=== PATIENT | female | born 1945 | race Caucasian/White ===

== ENCOUNTER 2018-02-12 11:09 | Emergency (ER) | payer MEDICAID ==
[~2018-02-12] VITALS: Ht 157.5 cm; Wt 55.0 kg
[~2018-02-12 11:09] MED LIST: ASPI81TA39 PO; CALC667T3 PO; INSLAN SQ; METO25XL PO; SIMV20TA6 PO
[2018-02-12 11:14] VITALS: BP 130/59
[2018-02-12] MEDS ORDERED: LISI-618 PO (11:19)
[2018-02-12] MEDS ORDERED: GABA-531 PO (11:19)
[2018-02-12] MEDS ORDERED: BACITRACIN 0.9 GM PACKET OINTMENT TP ONE (12:15)
== END 2018-02-12 12:36 | disposition home or self-care (01) ==
LOC: EMS 11:10
DX: S90.935A Unspecified superficial injury of left lesser toe(s), initial encounter (principal); E78.00 Pure hypercholesterolemia, unspecified; I11.0 Hypertensive heart disease with heart failure; I50.9 Heart failure, unspecified; Z79.4 Long term (current) use of insulin; Z79.82 Long term (current) use of aspirin; Z89.611 Acquired absence of right leg above knee; Z90.49 Acquired absence of other specified parts of digestive tract; Z95.0 Presence of cardiac pacemaker; X58.XXXA Exposure to other specified factors, initial encounter; Y93.89 Activity, other specified; Y92.89 Other specified places as the place of occurrence of the external cause; Y99.8 Other external cause status
CPT/HCPCS: 99283

== ENCOUNTER 2018-08-25 18:53 | Inpatient (IN) | payer MEDICAID ==
[~2018-08-25] VITALS: Ht 147.3 cm; Wt 42.8 kg
[~2018-08-25 18:53] MED LIST changes: +GABA-531 PO; +LISI-618 PO
[2018-08-25 19:30] LABS: EOSINOPHILS % (AUTO) 0.3 % (1.0-6.0); HEMATOCRIT 32.1 % (36-46); HEMOGLOBIN 10.8 g/dL (12.0-16.0); LYMPHOCYTES # (AUTO) 0.8 K/uL (1.0-4.8); LYMPHOCYTES % (AUTO) 10.2 % (22.0-44.0); MEAN CORPUSCULAR HEMOGLOBIN 31.7 pg (26.0-34.0); MEAN CORPUSCULAR HGB CONC 33.7 G/dL (31.0-37.0); MEAN CORPUSCULAR VOLUME 94 fL (80-100); MONOCYTES # (AUTO) 0.6 K/uL (0.1-1.0); MONOCYTES % (AUTO) 8.6 % (2.0-9.0); NEUTROPHILS # (AUTO) 6.1 K/uL (1.8-7.7); NEUTROPHILS % (AUTO) 79.9 % (40.0-70.0); RED BLOOD CELL COUNT(AUTO) 3.41 MIL/uL (4.00-5.20); RED CELL DISTRIBUTION WIDTH 15.8 % (11.5-14.5)
[2018-08-25] MEDS ORDERED: ACETAMINOPHEN 1000 MG/ISO-OSM 100 ML IV ONE (19:30)
[2018-08-25] MEDS ORDERED: SODIUM CHLORIDE 0.9% 250 ML IV ONE (19:45)
[2018-08-25 19:47] LABS: ANION GAP 6 mmol/L (8-16); CALCIUM, TOTAL 8.9 mg/dL (8.8-10.5); CARBON DIOXIDE 28 mmol/L (22-29); CHLORIDE 100 mmol/L (98-107); CREATININE 2.45 mg/dL (0.60-1.30); GLOMERULAR FILTR. RATE CALC 19 mL/min (>60); GLUCOSE,RANDOM 155 mg/dL (70-110); POTASSIUM 3.9 mmol/L (3.5-5.1); SODIUM SERUM 134 mmol/L (136-145); UREA NITROGEN, BLOOD 25 mg/dL (7-18)
[2018-08-25 19:53] LABS: ALANINE AMINOTRANSFERASE 14 U/L (12-78); ALBUMIN 2.9 g/dL (3.4-5.0); ALKALINE PHOSPHATASE 258 U/L (46-116); ASPARTATE AMINOTRANSFERASE 33 U/L (15-37); BILIRUBIN,TOTAL 0.9 mg/dL (0.1-1.0); LIPASE 82 U/L (73-393); TOTAL PROTEIN, SERUM 7.7 g/dL (6.4-8.2)
[2018-08-25 19:54] LABS: TROPONIN I 0.03 ng/mL (0.00-0.05)
[2018-08-25 19:55] LABS: B-TYPE NATRIURETIC PEPTIDE > 5000 pg/mL (0-100); LACTIC ACID 1.1 mmol/L (0.4-2.0)
[2018-08-25] MEDS ORDERED: OXYGEN THERAPY IH SCH (20:00)
[2018-08-25] MEDS ORDERED: VANCOMYCIN HCL 1 GM/D5% WATER 200 ML IV ONE (20:30)
[2018-08-25 20:41] LABS: PLATELET COUNT (AUTO) 102 K/uL (150-450)
[2018-08-25] MEDS ORDERED: ACETAMINOPHEN 325 MG TABLET PO PRN (21:00)
[2018-08-25] MEDS ORDERED: DEXTROSE 50%-WATER 25 GM/50 ML SYRINGE IVP PRN (21:00)
[2018-08-25] MEDS ORDERED: ONDANSETRON HCL 4 MG/2 ML VIAL IVP PRN (21:00)
[2018-08-25] MEDS ORDERED: 0.9% SODIUM CHLORIDE 10 ML SYRINGE IVP PRN (21:00)
[2018-08-25] MEDS ORDERED: BISACODYL 10 MG RECTAL RECTAL SUPPOSITORY PR PRN (21:15)
[2018-08-25 22:04] VITALS: BP 137/47
[2018-08-25] MEDS: ATORVASTATIN CALCIUM 20 MG TABLET PO SCH (22:51)
[2018-08-25] MEDS: ACETAMINOPHEN 325 MG TABLET PO PRN (22:51)
[2018-08-25 23:32] VITALS: BP 141/53
[2018-08-26 04:08] VITALS: BP 112/48
[2018-08-26 06:41] LABS: BASOPHILS % (AUTO) 0.4 % (0.0-2.0); EOSINOPHILS % (AUTO) 0.2 % (1.0-6.0); HEMATOCRIT 34.1 % (36-46); HEMOGLOBIN 11.4 g/dL (12.0-16.0); LYMPHOCYTES # (AUTO) 1.3 K/uL (1.0-4.8); LYMPHOCYTES % (AUTO) 11.9 % (22.0-44.0); MEAN CORPUSCULAR HEMOGLOBIN 31.9 pg (26.0-34.0); MEAN CORPUSCULAR HGB CONC 33.4 G/dL (31.0-37.0); MEAN CORPUSCULAR VOLUME 95 fL (80-100); MONOCYTES % (AUTO) 9.2 % (2.0-9.0); NEUTROPHILS # (AUTO) 8.3 K/uL (1.8-7.7); NEUTROPHILS % (AUTO) 78.3 % (40.0-70.0); PLATELET COUNT (AUTO) 89 K/uL (150-450); RED BLOOD CELL COUNT(AUTO) 3.57 MIL/uL (4.00-5.20); RED CELL DISTRIBUTION WIDTH 15.8 % (11.5-14.5)
[2018-08-26 06:45] LABS: CALCIUM, TOTAL 8.7 mg/dL (8.8-10.5); CREATININE 2.8 mg/dL (0.60-1.30); POTASSIUM 4.3 mmol/L (3.5-5.1)
[2018-08-26 07:08] VITALS: BP 126/55
[2018-08-26] MEDS: DOCUSATE SODIUM 100 MG CAPSULE PO SCH ×2 (07:25→21:00)
[2018-08-26] MEDS: PANTOPRAZOLE SODIUM 40 MG DR TABLET PO SCH (09:30)
[2018-08-26] MEDS: ASPIRIN 81 MG CHEWABLE TABLET PO SCH (09:30)
[2018-08-26] MEDS: HEPARIN SODIUM,PORCINE 5,000 UNITS/ML VIAL SQ SCH ×2 (09:30→21:00)
[2018-08-26 11:16] VITALS: BP 124/50
[2018-08-26 15:42] VITALS: BP 134/56
[2018-08-26] MEDS ORDERED: VANCOMYCIN HCL 1 GM/D5% WATER 200 ML IV PRN (15:45)
[2018-08-26 18:54] LABS: GLUCOMETER DEV NAME(LOC) 5N 1P; GLUCOSE,POINT OF CARE 159 MG/DL (70-110)
[2018-08-26] MEDS: ATORVASTATIN CALCIUM 20 MG TABLET PO SCH (20:32)
[2018-08-26] MEDS: ACETAMINOPHEN 325 MG TABLET PO PRN (20:32)
[2018-08-26 20:36] VITALS: BP 104/59
[2018-08-26 23:54] VITALS: BP 106/47
[2018-08-27 05:07] VITALS: BP 118/50
[2018-08-27] MEDS: HEPARIN SODIUM,PORCINE 5,000 UNITS/ML VIAL SQ SCH ×2 (07:26→20:00)
[2018-08-27 08:25] VITALS: BP 123/51
[2018-08-27] MEDS: DOCUSATE SODIUM 100 MG CAPSULE PO SCH ×2 (08:45→21:00)
[2018-08-27] MEDS: PANTOPRAZOLE SODIUM 40 MG DR TABLET PO SCH (08:46)
[2018-08-27] MEDS: ASPIRIN 81 MG CHEWABLE TABLET PO SCH (08:46)
[2018-08-27] MEDS ORDERED: EPOETIN ALFA 10,000 UNITS/ML 2 ML VIAL SQ SCH (09:00)
[2018-08-27 11:46] VITALS: BP 122/49
[2018-08-27] MEDS: INSULIN LISPRO 100 UNITS/ML SQ PRN ×2 (12:21→22:02)
[2018-08-27] MEDS: ACETAMINOPHEN 325 MG TABLET PO PRN ×2 (13:13→18:02)
[2018-08-27] MEDS: PHENYLEPHRINE/SHK LV/MIN OIL/PET 57 GM OINTMENT TP PRN ×2 (15:42→20:45)
[2018-08-27 16:54] VITALS: BP 121/63
[2018-08-27] MEDS ORDERED: VANCOMYCIN HCL 750 MG in DEXTROSE 5%-WATER 250 ML IV ONE (18:00)
[2018-08-27 19:40] VITALS: BP 120/42
[2018-08-27] MEDS: ATORVASTATIN CALCIUM 20 MG TABLET PO SCH (20:01)
[2018-08-28] VITALS (7 sets, daily range): BP systolic 117–139; BP diastolic 41–54
[2018-08-28 07:14] LABS: BASOPHILS % (AUTO) 0.6 % (0.0-2.0); EOSINOPHILS % (AUTO) 1.4 % (1.0-6.0); HEMATOCRIT 33.2 % (36-46); HEMOGLOBIN 11.2 g/dL (12.0-16.0); LYMPHOCYTES # (AUTO) 1.2 K/uL (1.0-4.8); LYMPHOCYTES % (AUTO) 14.9 % (22.0-44.0); MEAN CORPUSCULAR HEMOGLOBIN 31.6 pg (26.0-34.0); MEAN CORPUSCULAR HGB CONC 33.8 G/dL (31.0-37.0); MEAN CORPUSCULAR VOLUME 94 fL (80-100); MONOCYTES # (AUTO) 0.8 K/uL (0.1-1.0); NEUTROPHILS # (AUTO) 6.1 K/uL (1.8-7.7); NEUTROPHILS % (AUTO) 73.1 % (40.0-70.0); PLATELET COUNT (AUTO) 102 K/uL (150-450); RED BLOOD CELL COUNT(AUTO) 3.55 MIL/uL (4.00-5.20); RED CELL DISTRIBUTION WIDTH 15.7 % (11.5-14.5)
[2018-08-28 07:15] LABS: CALCIUM, TOTAL 8.6 mg/dL (8.8-10.5); CREATININE 2.59 mg/dL (0.60-1.30); POTASSIUM 4.1 mmol/L (3.5-5.1)
[2018-08-28] MEDS: DOCUSATE SODIUM 100 MG CAPSULE PO SCH ×2 (09:36→21:30)
[2018-08-28] MEDS: PANTOPRAZOLE SODIUM 40 MG DR TABLET PO SCH (09:37)
[2018-08-28] MEDS: HEPARIN SODIUM,PORCINE 5,000 UNITS/ML VIAL SQ SCH ×2 (09:37→21:33)
[2018-08-28] MEDS: ASPIRIN 81 MG CHEWABLE TABLET PO SCH (09:37)
[2018-08-28] MEDS: VITAMIN B COMP/VIT C/FOLIC ACID CAPSULE PO SCH (09:37)
[2018-08-28] MEDS: METOPROLOL SUCCINATE 25 MG ER TABLET PO SCH ×2 (12:06→21:00)
[2018-08-28] MEDS: ISOSORB DINIT/HYDRALAZINE HCL 20-37.5 MG TABLET PO SCH ×2 (12:06→21:29)
[2018-08-28] MEDS: INSULIN LISPRO 100 UNITS/ML SQ PRN ×3 (12:12→21:36)
[2018-08-28] MEDS: ACETAMINOPHEN 325 MG TABLET PO PRN (15:29)
[2018-08-28 20:35] LABS: GLUCOMETER DEV NAME(LOC) 5S 1M; GLUCOSE,POINT OF CARE 136 MG/DL (70-110)
[2018-08-28 20:35] LABS: GLUCOMETER DEV NAME(LOC) 5S 1M; GLUCOSE,POINT OF CARE 132 MG/DL (70-110)
[2018-08-28 20:35] LABS: GLUCOMETER DEV NAME(LOC) 5S 1M; GLUCOSE,POINT OF CARE 88 MG/DL (70-110)
[2018-08-28 20:35] LABS: GLUCOMETER DEV NAME(LOC) 5S 1M; GLUCOSE,POINT OF CARE 116 MG/DL (70-110)
[2018-08-28 20:35] LABS: GLUCOMETER DEV NAME(LOC) 5S 1M; GLUCOSE,POINT OF CARE 206 MG/DL (70-110)
[2018-08-28] MEDS: ATORVASTATIN CALCIUM 20 MG TABLET PO SCH (21:29)
[2018-08-29 03:11] LABS: GLUCOMETER DEV NAME(LOC) 5N 1P; GLUCOSE,POINT OF CARE 188 MG/DL (70-110)
[2018-08-29 03:11] LABS: GLUCOMETER DEV NAME(LOC) 5N 1P; GLUCOSE,POINT OF CARE 159 MG/DL (70-110)
[2018-08-29 04:31] VITALS: BP 124/59
[2018-08-29 06:34] LABS: BASOPHILS % (AUTO) 0.6 % (0.0-2.0); EOSINOPHILS % (AUTO) 3.7 % (1.0-6.0); HEMATOCRIT 31.2 % (36-46); HEMOGLOBIN 10.6 g/dL (12.0-16.0); LYMPHOCYTES # (AUTO) 1.2 K/uL (1.0-4.8); MEAN CORPUSCULAR HEMOGLOBIN 31.8 pg (26.0-34.0); MEAN CORPUSCULAR HGB CONC 34.1 G/dL (31.0-37.0); MEAN CORPUSCULAR VOLUME 93 fL (80-100); MONOCYTES # (AUTO) 0.7 K/uL (0.1-1.0); MONOCYTES % (AUTO) 11.2 % (2.0-9.0); NEUTROPHILS # (AUTO) 4.3 K/uL (1.8-7.7); NEUTROPHILS % (AUTO) 65.5 % (40.0-70.0); PLATELET COUNT (AUTO) 144 K/uL (150-450); RED BLOOD CELL COUNT(AUTO) 3.34 MIL/uL (4.00-5.20); RED CELL DISTRIBUTION WIDTH 15.3 % (11.5-14.5)
[2018-08-29 07:06] LABS: ALBUMIN 2.2 g/dL (3.4-5.0); BILIRUBIN,TOTAL 0.9 mg/dL (0.1-1.0); CALCIUM, TOTAL 8.2 mg/dL (8.8-10.5); CREATININE 3.38 mg/dL (0.60-1.30); POTASSIUM 4.4 mmol/L (3.5-5.1); TOTAL PROTEIN, SERUM 6.5 g/dL (6.4-8.2)
[2018-08-29 07:17] LABS: PHOSPHORUS 1.3 mg/dL (2.5-4.9)
[2018-08-29 07:49] VITALS: BP 124/58
[2018-08-29] MEDS: ISOSORB DINIT/HYDRALAZINE HCL 20-37.5 MG TABLET PO SCH (08:16)
[2018-08-29] MEDS: ASPIRIN 81 MG CHEWABLE TABLET PO SCH (08:17)
[2018-08-29] MEDS: PANTOPRAZOLE SODIUM 40 MG DR TABLET PO SCH (08:19)
[2018-08-29] MEDS: VITAMIN B COMP/VIT C/FOLIC ACID CAPSULE PO SCH (08:19)
[2018-08-29] MEDS: HEPARIN SODIUM,PORCINE 5,000 UNITS/ML VIAL SQ SCH (08:19)
[2018-08-29] MEDS: METOPROLOL SUCCINATE 25 MG ER TABLET PO SCH (08:20)
[2018-08-29] MEDS: DOCUSATE SODIUM 100 MG CAPSULE PO SCH (08:21)
[2018-08-29] MEDS ORDERED: SODIUM PHOS,M-BASIC-D-BASIC 10 MMOL in DEXTROSE 5%-WATER 100 ML IV ONE (09:30)
[2018-08-29] MEDS: ACETAMINOPHEN 325 MG TABLET PO PRN (10:44)
[2018-08-29] MEDS: INSULIN LISPRO 100 UNITS/ML SQ PRN (11:53)
[2018-08-29 12:04] VITALS: BP 140/55
[2018-08-29] MEDS ORDERED: CLIN300C3 PO (12:30)
[2018-08-29 13:04] LABS: GLUCOMETER DEV NAME(LOC) 5S 2Q; GLUCOSE,POINT OF CARE 226 MG/DL (70-110)
[2018-08-29 13:04] LABS: GLUCOMETER DEV NAME(LOC) 5S 2Q; GLUCOSE,POINT OF CARE 99 MG/DL (70-110)
[2018-08-29 13:04] LABS: GLUCOMETER DEV NAME(LOC) 5S 2Q; GLUCOSE,POINT OF CARE 108 MG/DL (70-110)
[2018-08-29 13:05] LABS: GLUCOMETER DEV NAME(LOC) 5S 2Q; GLUCOSE,POINT OF CARE 200 MG/DL (70-110)
[2018-08-30 14:19] LABS: GLUCOMETER DEV NAME(LOC) 5N 2S; GLUCOSE,POINT OF CARE 200 MG/DL (70-110)
[2018-08-30 14:20] LABS: GLUCOMETER DEV NAME(LOC) 5N 2S; GLUCOSE,POINT OF CARE 91 MG/DL (70-110)
== END 2018-08-29 14:20 | disposition home or self-care (01) | DRG 194 ==
LOC: EMS 18:54 → 5S 21:00
PROVIDERS: ADMIT Internal Medicine; ATTEND Internal Medicine
PROC: 5A1D70Z Performance of Urinary Filtration, Intermittent, Less than 6 Hours Per Day (ICD-10-PCS; principal; 2018-08-27)
DX: I13.2 Hypertensive heart and chronic kidney disease with heart failure and with stage 5 chronic kidney disease, or end stage renal disease (principal); E43 Unspecified severe protein-calorie malnutrition; G92 Toxic encephalopathy; E11.22 Type 2 diabetes mellitus with diabetic chronic kidney disease; I49.5 Sick sinus syndrome; E11.319 Type 2 diabetes mellitus with unspecified diabetic retinopathy without macular edema; E11.51 Type 2 diabetes mellitus with diabetic peripheral angiopathy without gangrene; L03.116 Cellulitis of left lower limb; N18.6 End stage renal disease; I50.43 Acute on chronic combined systolic (congestive) and diastolic (congestive) heart failure; I25.10 Atherosclerotic heart disease of native coronary artery without angina pectoris; E78.00 Pure hypercholesterolemia, unspecified; F01.50 Vascular dementia, unspecified severity, without behavioral disturbance, psychotic disturbance, mood disturbance, and anxiety; R62.7 Adult failure to thrive; I87.2 Venous insufficiency (chronic) (peripheral); E78.5 Hyperlipidemia, unspecified; D63.1 Anemia in chronic kidney disease; I25.5 Ischemic cardiomyopathy; Z66 Do not resuscitate; Z68.1 Body mass index [BMI] 19.9 or less, adult; Z90.49 Acquired absence of other specified parts of digestive tract; Z79.4 Long term (current) use of insulin; Z89.611 Acquired absence of right leg above knee; Z99.2 Dependence on renal dialysis; Z95.810 Presence of automatic (implantable) cardiac defibrillator; Z89.511 Acquired absence of right leg below knee; Z89.612 Acquired absence of left leg above knee; Z90.710 Acquired absence of both cervix and uterus; Z98.51 Tubal ligation status
CPT/HCPCS: 51701; 71250; 83605; 83735; 84100; 84145; 87040; 87045; 87081; 87340; 87427; 93005; 93306; 93925; 96365; 96366; 96368; 99291; J0131; J0885; J1644; J3370; J3490; J7040; J7060

== ENCOUNTER 2018-10-12 14:37 | Inpatient (IN) | payer MEDICAID ==
[~2018-10-12] VITALS: Ht 152.4 cm; Wt 43.1 kg
[~2018-10-12 14:37] MED LIST changes: -CALC667T3 PO; +CLIN300C3 PO; -GABA-531 PO; -INSLAN SQ; -LISI-618 PO
[2018-10-12] MEDS ORDERED: LISI-662 PO (14:54)
[2018-10-12] MEDS ORDERED: GABA-531 PO (14:54)
[2018-10-12] MEDS ORDERED: PHOSLOC PO (14:54)
[2018-10-12 15:04] LABS: GLUCOSE,POINT OF CARE 69 MG/DL (70-110)
[2018-10-12] MEDS ORDERED: ASPIRIN 81 MG CHEWABLE TABLET PO ONE (15:15)
[2018-10-12] MEDS ORDERED: DEXTROSE 50%-WATER 25 GM/50 ML SYRINGE IVP ONE (15:30)
[2018-10-12] MEDS: NITROGLYCERIN 2% (1 GM=INCH) PACKET TP ONE ×2 (15:40→15:44)
[2018-10-12] MEDS ORDERED: SODIUM CHLORIDE 0.9% 1,000 ML IV ONE (15:45)
[2018-10-12 16:05] LABS: HEMATOCRIT 35.7 % (36-46); HEMOGLOBIN 11.6 g/dL (12.0-16.0); MEAN CORPUSCULAR HEMOGLOBIN 30.1 pg (26.0-34.0); MEAN CORPUSCULAR HGB CONC 32.6 G/dL (31.0-37.0); MEAN CORPUSCULAR VOLUME 92 fL (80-100); PLATELET COUNT (AUTO) 175 K/uL (150-450); RED BLOOD CELL COUNT(AUTO) 3.87 MIL/uL (4.00-5.20); RED CELL DISTRIBUTION WIDTH 16.3 % (11.5-14.5)
[2018-10-12 16:16] LABS: INR 1.4 (0.9-1.1); PROTHROMBIN TIME 14.7 SEC (9.4-11.6)
[2018-10-12 16:22] LABS: CALCIUM, TOTAL 8.7 mg/dL (8.8-10.5); CREATININE 5.01 mg/dL (0.60-1.30); POTASSIUM 3.8 mmol/L (3.5-5.1)
[2018-10-12 16:28] LABS: ALBUMIN 2.3 g/dL (3.4-5.0); BILIRUBIN,TOTAL 2.1 mg/dL (0.1-1.0); TOTAL PROTEIN, SERUM 6.6 g/dL (6.4-8.2)
[2018-10-12] MEDS ORDERED: VANCOMYCIN HCL 1 GM/D5% WATER 200 ML IV ONE (17:00)
[2018-10-12 17:08] LABS: GLUCOSE,POINT OF CARE 189 MG/DL (70-110)
[2018-10-12] MEDS: PIPERACILLIN SODIUM/TAZOBACTAM 2.25 GM in DEXTROSE 5%-WATER 50 ML IV SCH (17:10)
[2018-10-12 17:39] LABS: BAND NEUTROPHILS % (MANUAL) 21 % (0-5); LYMPHOCYTES % (MANUAL) 4 % (22-44); MONOCYTES % (MANUAL) 3 % (2-9); SEGMENTED NEUTROPHILS % 72 % (40-70)
[2018-10-12] MEDS ORDERED: 0.9% SODIUM CHLORIDE 10 ML SYRINGE IVP PRN (19:15)
[2018-10-12] MEDS ORDERED: ONDANSETRON HCL 4 MG/2 ML VIAL IVP PRN (19:15)
[2018-10-12] MEDS ORDERED: ACETAMINOPHEN 325 MG TABLET PO PRN ×2 (19:15→20:30)
[2018-10-12] MEDS ORDERED: BACITRACIN 0.9 GM PACKET OINTMENT TP ONE (19:45)
[2018-10-12] MEDS ORDERED: ZOLPIDEM TARTRATE 5 MG TABLET PO PRN (20:30)
[2018-10-12] MEDS ORDERED: IPRATROPIUM BROMIDE 0.5 MG/2.5 ML NEB SOLUTION NEB PRN (20:30)
[2018-10-12] MEDS ORDERED: MORPHINE SULFATE 4 MG/ML SYRINGE IVP PRN (20:30)
[2018-10-12] MEDS ORDERED: OxyCODONE HCL/ACETAMINOPHEN 5-325 MG TABLET PO PRN (20:30)
[2018-10-12] MEDS ORDERED: BISACODYL 10 MG RECTAL RECTAL SUPPOSITORY PR PRN (20:30)
[2018-10-12] MEDS ORDERED: ALBUTEROL SULFATE 2.5 MG/0.5 ML NEB SOLUTION NEB PRN (20:30)
[2018-10-12] MEDS ORDERED: MAGNESIUM HYDROXIDE SUSPENSION 30 ML UDCUP PO PRN (20:30)
[2018-10-12 20:45] VITALS: BP 102/40
[2018-10-12] MEDS: HEPARIN SODIUM,PORCINE 5,000 UNITS/ML VIAL SQ SCH (21:00)
[2018-10-12] MEDS ORDERED: LISINOPRIL 20 MG TABLET PO SCH (21:00)
[2018-10-12] MEDS: GABAPENTIN 300 MG CAPSULE PO SCH (22:11)
[2018-10-12] MEDS: SIMVASTATIN 20 MG TABLET PO SCH (22:12)
[2018-10-12 23:35] VITALS: BP 96/41
[2018-10-13] MEDS ORDERED: SODIUM CHLORIDE 0.9% 250 ML IV ONE (01:20)
[2018-10-13] MEDS: PIPERACILLIN SODIUM/TAZOBACTAM 2.25 GM in DEXTROSE 5%-WATER 50 ML IV SCH ×3 (01:23→18:13)
[2018-10-13] MEDS ORDERED: PIPERACILLIN SODIUM/TAZOBACTAM 0.75 GM in DEXTROSE 5%-WATER 50 ML IV PRN (01:30)
[2018-10-13 04:32] VITALS: BP 90/41
[2018-10-13] MEDS ORDERED: METOCLOPRAMIDE HCL 5 MG/ML 2 ML VIAL IVP PRN (06:00)
[2018-10-13 06:49] LABS: BASOPHILS % (AUTO) 0.1 % (0.0-2.0); EOSINOPHILS % (AUTO) 2.1 % (1.0-6.0); HEMATOCRIT 37.9 % (36-46); HEMOGLOBIN 12.7 g/dL (12.0-16.0); LYMPHOCYTES # (AUTO) 1.2 K/uL (1.0-4.8); LYMPHOCYTES % (AUTO) 4.7 % (22.0-44.0); MEAN CORPUSCULAR HEMOGLOBIN 31.3 pg (26.0-34.0); MEAN CORPUSCULAR HGB CONC 33.5 G/dL (31.0-37.0); MEAN CORPUSCULAR VOLUME 93 fL (80-100); MONOCYTES # (AUTO) 0.7 K/uL (0.1-1.0); MONOCYTES % (AUTO) 2.7 % (2.0-9.0); NEUTROPHILS # (AUTO) 23.1 K/uL (1.8-7.7); PLATELET COUNT (AUTO) 186 K/uL (150-450); RED BLOOD CELL COUNT(AUTO) 4.06 MIL/uL (4.00-5.20); RED CELL DISTRIBUTION WIDTH 16.5 % (11.5-14.5)
[2018-10-13] MEDS ORDERED: PIPERACILLIN/TAZO 3.375 GM/D5W 50 ML IV SCH (07:00)
[2018-10-13 07:02] LABS: INR 1.4 (0.9-1.1); PROTHROMBIN TIME 14.3 SEC (9.4-11.6)
[2018-10-13 07:07] VITALS: BP 125/44
[2018-10-13 07:07] LABS: NEUTROPHILS % (AUTO) 90.4 % (40.0-70.0)
[2018-10-13 07:21] LABS: HEMOGLOBIN A1C 5.4 % (4.5-6.2)
[2018-10-13 07:28] LABS: ALBUMIN 2.2 g/dL (3.4-5.0); BILIRUBIN,TOTAL 2.1 mg/dL (0.1-1.0); CALCIUM, TOTAL 8.8 mg/dL (8.8-10.5); CREATININE 5.32 mg/dL (0.60-1.30); MAGNESIUM 2.1 mg/dL (1.80-2.40); PHOSPHORUS 4.3 mg/dL (2.5-4.9); POTASSIUM 3.8 mmol/L (3.5-5.1); TOTAL PROTEIN, SERUM 6.8 g/dL (6.4-8.2)
[2018-10-13] MEDS: ASPIRIN 81 MG CHEWABLE TABLET PO SCH (08:28)
[2018-10-13] MEDS: GABAPENTIN 300 MG CAPSULE PO SCH (08:28)
[2018-10-13] MEDS: PANTOPRAZOLE SODIUM 40 MG DR TABLET PO SCH (08:28)
[2018-10-13] MEDS: HEPARIN SODIUM,PORCINE 5,000 UNITS/ML VIAL SQ SCH ×2 (08:29→21:49)
[2018-10-13] MEDS: CALCIUM ACETATE 667 MG CAPSULE PO SCH ×2 (08:29→17:30)
[2018-10-13] MEDS ORDERED: METOPROLOL SUCCINATE 25 MG ER TABLET PO SCH (09:00)
[2018-10-13] MEDS ORDERED: -POST HEMODIALYSIS NOTE- MISC SCH (09:00)
[2018-10-13 11:15] VITALS: BP 121/43
[2018-10-13 15:58] VITALS: BP 75/36
[2018-10-13 17:00] VITALS: BP 90/39
[2018-10-13 17:24] LABS: GLUCOMETER DEV NAME(LOC) 5S 1N; GLUCOSE,POINT OF CARE 162 MG/DL (70-110)
[2018-10-13] MEDS: NOREPINEPHRINE 4 MG/D5%-WATER 250 ML IV PRN (17:29)
[2018-10-13 17:53] LABS: SOURCE, BLOOD GAS ARTERIAL; TEMPERATURE, FAHRENHEIT, BG 98.6 FAHREN (96.0-98.6)
[2018-10-13] MEDS ORDERED: SODIUM CHLORIDE 0.9% 500 ML IV ONE (17:54)
[2018-10-13 17:56] LABS: ABG A-A DIFF O2 551.1 mmHg (10-20.0); ABG BASE EXCESS -3.6 mmol/L (-2.0-3.0); ABG CARBOXYHEMOGLOBIN 1.9 % (0.0-1.5); ABG HCO3 21.8 mmol/L (22.0-26.0); ABG METHEMOGLOBIN 0.1 % (0.0-1.5); ABG OXYGEN SATURATION 98.8 % (95.0-98.0); ABG OXYHEMOGLOBIN 96.8 % (94.0-100.0); ABG PCO2 39 mmHg (35-45); ABG PH 7.368 (7.35-7.450); ABG TOTAL HEMOGLOBIN 11.6 G/dL (12.0-18.0); O2 DEVICE,BLOOD GAS NON REBREATHER (ROOM AIR); PO2, ARTERIAL BG 123.3 mmHg (75.0-83.0); SITE, BLOOD GAS RT BRACHIAL
[2018-10-13 20:00] VITALS: BP 104/44
[2018-10-13] MEDS: SIMVASTATIN 20 MG TABLET PO SCH (21:00)
[2018-10-13 22:48] LABS: GLUCOMETER DEV NAME(LOC) PVLAB146; GLUCOSE,POINT OF CARE 164 MG/DL (70-110)
[2018-10-14] VITALS: BP 98/53
[2018-10-14] MEDS: PIPERACILLIN SODIUM/TAZOBACTAM 2.25 GM in DEXTROSE 5%-WATER 50 ML IV SCH ×3 (01:56→17:52)
[2018-10-14 02:18] LABS: GLUCOSE,POINT OF CARE 162 MG/DL (70-110)
[2018-10-14] MEDS: NOREPINEPHRINE 4 MG/D5%-WATER 250 ML IV PRN ×3 (03:00→13:54)
[2018-10-14 04:00] VITALS: BP 107/47
[2018-10-14 05:38] LABS: ALBUMIN 1.8 g/dL (3.4-5.0); BILIRUBIN,TOTAL 2.1 mg/dL (0.1-1.0); CREATININE 5.88 mg/dL (0.60-1.30); POTASSIUM 5.1 mmol/L (3.5-5.1); TOTAL PROTEIN, SERUM 6.9 g/dL (6.4-8.2)
[2018-10-14 06:19] LABS: GLUCOMETER DEV NAME(LOC) PVLAB146; GLUCOSE,POINT OF CARE 169 MG/DL (70-110)
[2018-10-14] MEDS: CALCIUM ACETATE 667 MG CAPSULE PO SCH ×2 (07:30→16:02)
[2018-10-14] MEDS: ASPIRIN 81 MG CHEWABLE TABLET PO SCH (07:30)
[2018-10-14] MEDS: PANTOPRAZOLE SODIUM 40 MG DR TABLET PO SCH (07:31)
[2018-10-14 07:58] LABS: INFLUENZA TYPE A NEGATIVE FOR TYPE A (NEGATIVE); INFLUENZA TYPE B NEGATIVE FOR TYPE B (NEGATIVE)
[2018-10-14 08:00] VITALS: BP 105/52
[2018-10-14] MEDS ORDERED: SODIUM CHLORIDE 0.9% 500 ML IV ONE (08:04)
[2018-10-14] MEDS: HEPARIN SODIUM,PORCINE 5,000 UNITS/ML VIAL SQ SCH ×2 (08:31→21:23)
[2018-10-14 09:18] LABS: BASOPHILS % (AUTO) 0.4 % (0.0-2.0); HEMATOCRIT 35.4 % (36-46); HEMOGLOBIN 11.2 g/dL (12.0-16.0); MEAN CORPUSCULAR HEMOGLOBIN 30.2 pg (26.0-34.0); MEAN CORPUSCULAR HGB CONC 31.5 G/dL (31.0-37.0); MEAN CORPUSCULAR VOLUME 96 fL (80-100); MONOCYTES % (AUTO) 3.5 % (2.0-9.0); NEUTROPHILS # (AUTO) 25.4 K/uL (1.8-7.7); NEUTROPHILS % (AUTO) 85.1 % (40.0-70.0); PLATELET COUNT (AUTO) 217 K/uL (150-450); RED CELL DISTRIBUTION WIDTH 16.5 % (11.5-14.5)
[2018-10-14 09:24] LABS: MAGNESIUM 2.2 mg/dL (1.80-2.40); PHOSPHORUS 5.2 mg/dL (2.5-4.9)
[2018-10-14 09:24] LABS: ABG METHEMOGLOBIN 0.3 % (0.0-1.5); SOURCE, BLOOD GAS ARTERIAL; TEMPERATURE, FAHRENHEIT, BG 97.7 FAHREN (96.0-98.6)
[2018-10-14 09:41] LABS: ABG A-A DIFF O2 558.3 mmHg (10-20.0); ABG BASE EXCESS -13.4 mmol/L (-2.0-3.0); ABG CARBOXYHEMOGLOBIN 0.9 % (0.0-1.5); ABG HCO3 13.5 mmol/L (22.0-26.0); ABG OXYGEN SATURATION 91.3 % (95.0-98.0); ABG OXYHEMOGLOBIN 90.2 % (94.0-100.0); ABG PCO2 78 mmHg (35-45); ABG PH 6.985 (7.35-7.450); O2 DEVICE,BLOOD GAS NON REBREATHER (ROOM AIR); PO2, ARTERIAL BG 78.5 mmHg (75.0-83.0); SITE, BLOOD GAS RT BRACHIAL
[2018-10-14] MEDS ORDERED: RAPID SEQUENCE KIT [RSI] 1 EACH KIT ONE (10:09)
[2018-10-14] MEDS ORDERED: ETOMIDATE 2 MG/ML 10 ML VIAL IVP ONE (10:14)
[2018-10-14] MEDS: PHENYLEPHRINE 200 MG/D5%-WATER 250 ML IV PRN ×2 (11:00→23:10)
[2018-10-14] MEDS ORDERED: SODIUM CHLORIDE 0.9% 100 ML ONE (11:53)
[2018-10-14 12:00] VITALS: BP 93/54
[2018-10-14] MEDS ORDERED: SODIUM CHLORIDE 0.9% 1,000 ML IV ONE ×2 (12:00→17:08)
[2018-10-14] MEDS ORDERED: VANCOMYCIN HCL 1 GM/D5% WATER 200 ML IV PRN (12:45)
[2018-10-14 12:52] LABS: ABG A-A DIFF O2 288.5 mmHg (10-20.0); ABG BASE EXCESS -11.7 mmol/L (-2.0-3.0); ABG CARBOXYHEMOGLOBIN 0.6 % (0.0-1.5); ABG HCO3 16.3 mmol/L (22.0-26.0); ABG METHEMOGLOBIN 0.2 % (0.0-1.5); ABG OXYGEN CONTENT 16.4 mL/dL (15.0-23.0); ABG OXYGEN SATURATION 99.7 % (95.0-98.0); ABG OXYHEMOGLOBIN 98.9 % (94.0-100.0); ABG PCO2 27 mmHg (35-45); ABG PH 7.336 (7.35-7.450); PO2, ARTERIAL BG 398.1 mmHg (75.0-83.0); SOURCE, BLOOD GAS ARTERIAL
[2018-10-14 12:53] LABS: O2 DEVICE,BLOOD GAS VENTILATOR (ROOM AIR); PEEP,BG 5 cm H2O; SITE, BLOOD GAS ARTERIAL LINE; VENT MODE, BG Press. Control Vent (ROOM AIR); VT, ABG 400 ml
[2018-10-14] MEDS ORDERED: VANCOMYCIN HCL 750 MG in DEXTROSE 5%-WATER 250 ML IV ONE (14:00)
[2018-10-14] MEDS: DOXYCYCLINE HYCLATE 100 MG in DEXTROSE 5%-WATER 100 ML IV SCH (14:20)
[2018-10-14] MEDS: VASOPRESSIN 40 UNITS in DEXTROSE 5%-WATER 98 ML IV PRN (15:33)
[2018-10-14 16:00] VITALS: BP 106/33
[2018-10-14 16:04] LABS: GLUCOMETER DEV NAME(LOC) PVLAB146; GLUCOSE,POINT OF CARE 177 MG/DL (70-110)
[2018-10-14] MEDS ORDERED: ETOMIDATE 2 MG/ML 10 ML VIAL IV ONE (17:26)
[2018-10-14] MEDS ORDERED: NOREPINEPHRINE BITARTRATE 16 MG in DEXTROSE 5%-WATER 234 ML IV STA (17:45)
[2018-10-14] MEDS ORDERED: SODIUM CITRATE 4% CATH FLUSH 5 ML SYRINGE IVCATH ONE ×2 (17:45→18:00)
[2018-10-14] MEDS ORDERED: NOREPINEPHRINE BITARTRATE 16 MG in DEXTROSE 5%-WATER 234 ML IV PRN (18:00)
[2018-10-14 20:00] VITALS: BP 59/22
[2018-10-14] MEDS: SIMVASTATIN 20 MG TABLET PO SCH (21:00)
[2018-10-15] VITALS: BP 57/21
[2018-10-15] MEDS ORDERED: DEXTROSE 50%-WATER 25 GM/50 ML SYRINGE IVP ONE (00:08)
[2018-10-15] MEDS ORDERED: DEXTROSE 50%-WATER 25 GM/50 ML SYRINGE IVP PRN (00:15)
[2018-10-15] MEDS: PIPERACILLIN SODIUM/TAZOBACTAM 2.25 GM in DEXTROSE 5%-WATER 50 ML IV SCH (00:21)
[2018-10-15] MEDS: VASOPRESSIN 40 UNITS in DEXTROSE 5%-WATER 98 ML IV PRN (00:22)
[2018-10-15] MEDS: DOXYCYCLINE HYCLATE 100 MG in DEXTROSE 5%-WATER 100 ML IV SCH (01:09)
[2018-10-15] MEDS: POTASSIUM CHLORIDE 20 MEQ in NXSTAGE RFP-402 K0/CA3 5,000 ML IRRIG PRN ×2 (03:55→03:58)
[2018-10-15 04:00] VITALS: BP 48/22
[2018-10-15] MEDS ORDERED: EPINEPHrine 1:10,000 [1 MG/10 ML] SYRINGE ONE (04:36)
[2018-10-15 05:03] LABS: BASOPHILS % (AUTO) 0.1 % (0.0-2.0); EOSINOPHILS % (AUTO) 4.3 % (1.0-6.0); LYMPHOCYTES # (AUTO) 2.5 K/uL (1.0-4.8); LYMPHOCYTES % (AUTO) 11.5 % (22.0-44.0); MEAN CORPUSCULAR HEMOGLOBIN 30.7 pg (26.0-34.0); MEAN CORPUSCULAR HGB CONC 29.5 G/dL (31.0-37.0); MEAN CORPUSCULAR VOLUME 104 fL (80-100); MONOCYTES # (AUTO) 0.5 K/uL (0.1-1.0); MONOCYTES % (AUTO) 2.3 % (2.0-9.0); NEUTROPHILS # (AUTO) 17.9 K/uL (1.8-7.7); NEUTROPHILS % (AUTO) 81.8 % (40.0-70.0); RED BLOOD CELL COUNT(AUTO) 2.46 MIL/uL (4.00-5.20); RED CELL DISTRIBUTION WIDTH 17.6 % (11.5-14.5)
[2018-10-15 05:11] LABS: HEMATOCRIT 25.6 % (36-46); HEMOGLOBIN 7.6 g/dL (12.0-16.0)
[2018-10-15 05:12] LABS: PLATELET COUNT (AUTO) 64 K/uL (150-450)
[2018-10-15 05:14] LABS: GLUCOMETER DEV NAME(LOC) PVLAB146; GLUCOSE,POINT OF CARE 213 MG/DL (70-110)
[2018-10-15 05:14] LABS: GLUCOMETER DEV NAME(LOC) PVLAB146; GLUCOSE,POINT OF CARE 33 MG/DL (70-110)
[2018-10-15 05:19] LABS: GLUCOMETER DEV NAME(LOC) PVLAB146; GLUCOSE,POINT OF CARE 162 MG/DL (70-110)
[2018-10-15 05:49] LABS: CALCIUM, TOTAL 7.6 mg/dL (8.8-10.5); CREATININE 3.81 mg/dL (0.60-1.30); VANCOMYCIN,RANDOM 15.1 mcg/mL (25.0-50.0)
[2018-10-15 05:51] LABS: POTASSIUM 8.2 mmol/L (3.5-5.1)
[2018-10-15 06:51] LABS: PLATELET MORPHOLOGY COMMENT GIANT PLTS PRESENT
[2018-10-15] MEDS ORDERED: EPINEPHrine 1:10,000 [1 MG/10 ML] SYRINGE IVP ONE (07:49)
[2018-10-15] MEDS ORDERED: VANCOMYCIN HCL 750 MG in DEXTROSE 5%-WATER 250 ML IV ONE (08:00)
[2018-10-15 14:09] LABS: GLUCOSE,POINT OF CARE 159 MG/DL (70-110)
== END 2018-10-15 04:45 | disposition expired | DRG 720 ==
LOC: EMS 14:38 → 5N 18:45 → ICU 10-13 16:45
PROVIDERS: ADMIT Internal Medicine; ATTEND Internal Medicine
PROC: 06HY33Z Insertion of Infusion Device into Lower Vein, Percutaneous Approach (ICD-10-PCS; principal; 2018-10-14)
PROC: 5A1935Z Respiratory Ventilation, Less than 24 Consecutive Hours (ICD-10-PCS; 2018-10-14)
PROC: 04HY33Z Insertion of Infusion Device into Lower Artery, Percutaneous Approach (ICD-10-PCS; 2018-10-14)
PROC: B54DZZA Ultrasonography of Bilateral Lower Extremity Veins, Guidance (ICD-10-PCS; 2018-10-14)
PROC: B44LZZZ Ultrasonography of Femoral Artery (ICD-10-PCS; 2018-10-14)
PROC: 5A1D70Z Performance of Urinary Filtration, Intermittent, Less than 6 Hours Per Day (ICD-10-PCS; 2018-10-14)
PROC: 0BH17EZ Insertion of Endotracheal Airway into Trachea, Via Natural or Artificial Opening (ICD-10-PCS; 2018-10-14)
DX: A41.9 Sepsis, unspecified organism (principal); J96.02 Acute respiratory failure with hypercapnia; R65.21 Severe sepsis with septic shock; I13.2 Hypertensive heart and chronic kidney disease with heart failure and with stage 5 chronic kidney disease, or end stage renal disease; G93.41 Metabolic encephalopathy; J18.9 Pneumonia, unspecified organism; J90 Pleural effusion, not elsewhere classified; E11.21 Type 2 diabetes mellitus with diabetic nephropathy; I46.9 Cardiac arrest, cause unspecified; I25.5 Ischemic cardiomyopathy; E78.00 Pure hypercholesterolemia, unspecified; I50.23 Acute on chronic systolic (congestive) heart failure; E78.5 Hyperlipidemia, unspecified; I44.7 Left bundle-branch block, unspecified; E11.40 Type 2 diabetes mellitus with diabetic neuropathy, unspecified; E11.51 Type 2 diabetes mellitus with diabetic peripheral angiopathy without gangrene; E11.22 Type 2 diabetes mellitus with diabetic chronic kidney disease; N18.6 End stage renal disease; D63.1 Anemia in chronic kidney disease; Z89.611 Acquired absence of right leg above knee; Z90.49 Acquired absence of other specified parts of digestive tract; Z82.49 Family history of ischemic heart disease and other diseases of the circulatory system; Z83.3 Family history of diabetes mellitus; Z99.2 Dependence on renal dialysis; Z89.612 Acquired absence of left leg above knee
CPT/HCPCS: 82805; 82948; 83036; 83735; 84100; 87040; 87070; 87081; 87340; 87804; 93005; 94002; 94660; 96365; 96368; 96375; G0378; J0171; J1644; J2370; J2543; J3370; J3480; J3490; J7030; J7040; J7050; J7060